=== PATIENT | male | born 1950 | race Caucasian/White ===

== ENCOUNTER 2021-07-15 19:23 | Inpatient (IN) | payer MEDICARE ==
[2021-07-15] MEDS ORDERED: NALOXONE 0.4 MG/ML 1 ML VIAL IV PRN (20:10)
[2021-07-15] MEDS ORDERED: ACETAMINOPHEN TAB 325 MG TAB PO PRN (20:10)
--- NOTE | 2021-07-15 20:34 | ED ---
General Adult HPI - General Chief complaint: Weakness Stated complaint: Weakness Time Seen by Provider: 07/15/21 19:26 Source: patient, EMS, RN notes reviewed, old records reviewed Mode of arrival: EMS - History of Present Illness Initial comments: 70-year-old presenting for evaluation of weakness, lightheadedness. Symptoms have been progressive over some time. He was transferred from [facility] after being found to be in acute renal failure with hyponatremia and hypercalcemia. Patient has not seen a doctor in many years. He states he's feeling better at the time my evaluation. He denies chest pain or dyspnea. Denies abdominal pain. Patient had been given IV hydration prior to transfer. - Related Data Allergies Allergy/AdvReac Type Severity Reaction Status Date / Time bacitracin Allergy Unknown Verified 07/15/21 19:35 [From Neosporin ([id number])] cortisone Allergy Unknown Verified 07/15/21 19:35 neomycin Allergy Unknown Verified 07/15/21 19:35 [From Neosporin ([id number])] polymyxin B Allergy Unknown Verified 07/15/21 19:35 [From Neosporin ([id number])] Review of Systems ROS Statement: Those systems with pertinent positive or pertinent negative responses have been documented in the HPI. ROS Other: All systems not noted in ROS Statement are negative. Past Medical History Past Medical History: No Reported History History of Any Multi-Drug Resistant Organisms: None Reported Past Surgical History: No Surgical Hx Reported Past Psychological History: No Psychological Hx Reported Smoking Status: Current every day smoker Past Alcohol Use History: None Reported Past Drug Use History: None Reported General Exam General appearance: alert, in no apparent distress, cachectic Eye exam: Present: normal appearance, PERRL ENT exam: Present: normal exam Neck exam: Present: normal inspection. Absent: tenderness, meningismus Respiratory exam: Present: wheezes. Absent: respiratory distress Cardiovascular Exam: Present: regular rate, normal rhythm GI/Abdominal exam: Present: soft. Absent: distended, tenderness, guarding Extremities exam: Present: normal inspection, normal capillary refill. Absent: pedal edema Neurological exam: Present: alert, oriented X3. Absent: motor sensory deficit Psychiatric exam: Present: normal affect, normal mood Skin exam: Present: warm, dry, intact Course Vital Signs 10/30/21 10/30/21 19:28 19:30 Temperature 97.3 F L Pulse Rate 61 67 Respiratory 18 18 Rate Blood Pressure 104/60 94/62 O2 Sat by Pulse 93 L 97 Oximetry EKG Findings - EKG Comments: EKG Findings:: EKG: Sinus bradycardia with first-degree AV block, rate of 59, MS interval 138, QRS duration 92, QTC 423 Medical Decision Making - Medical Decision Making 70-year-old male transferred from outside hospital for evaluation of electrolyte abnormalities including hyponatremia, hypercalcemia, and hypokalemia. Patient had been treated with IV fluids. IV fluids, repeat laboratory studies have been ordered and results are pending. Did discuss the case with Dr. Haile, who will admit. Disposition Clinical Impression: Hyponatremia, Hypokalemia, Hypercalcemia Disposition: ADMITTED IP TO THIS HOSP Condition: Stable Is patient prescribed a controlled substance at d/c from ED?: No Referrals: None,Stated [Primary Care Provider] - 1-2 days Decision to Admit Reason: Admit from EC Decision Date: 07/15/21 Decision Time: 20:34
[2021-07-15 20:38] LABS: HCT 36.8 % (39.0-53.0); HGB 12.4 gm/dL (13.0-17.5); MCH 36.9 pg (25.0-35.0); MCHC 33.8 g/dL (31.0-37.0); MCV 109.3 fL (80.0-100.0); Macrocytosis Moderate; Mean Platelet Volume 9.3; Platelet Count 119 k/uL (150-450); RBC 3.37 m/uL (4.30-5.90); RDW 13.1 % (11.5-15.5); WBC 4.8 k/uL (3.8-10.6)
[2021-07-15 20:41] LABS: Ionized Calcium 8.4 mg/dL (4.5-5.3)
[2021-07-15 20:46] LABS: Albumin 3.3 g/dL (3.5-5.0); Magnesium 2.4 mg/dL (1.6-2.3); Phosphorus 3.2 mg/dL (2.5-4.5); Potassium 3.8 mmol/L (3.5-5.1); Total Bilirubin 0.4 mg/dL (0.2-1.3); Total Protein 6.5 g/dL (6.3-8.2)
[2021-07-15 21:33] LABS: Appearance,Urine Clear (Clear); Bilirubin,Urine Negative (Negative); Blood,Urine Negative (Negative); Color,Urine Yellow; Glucose,Urine (UA) Negative (Negative); Ketones,Urine Trace (Negative); Leukocyte Esterase,Urine Negative (Negative); Nitrite,Urine Negative (Negative); Protein,Urine Negative (Negative); Specific Gravity,Urine 1.016 (1.001-1.035); Urobilinogen,Urine <2.0 mg/dL (<2.0)
[2021-07-15 21:39] LABS: Calcium 15.7 mg/dL (8.4-10.2)
[2021-07-15] MEDS: SODIUM CHLORIDE 0.9% 1,000 ML IV SCH (21:40)
[2021-07-15 22:04] LABS: Band Neutrophils % 11 %; Eosinophils # (M) 0.05 k/uL (0-0.7); Lymphocytes # (M) 1.01 k/uL (1.0-4.8); Monocytes # (M) 0.48 k/uL (0-1.0); Neutrophils % (M) 57 %; Nucleated Red Blood Cells 0 /100 WBC (0-0); Total Cells Counted 100
[2021-07-15 22:58] LABS: Prothrombin Time 10.5 sec (9.0-12.0)
[2021-07-15 23:04] LABS: Partial Thromboplastin Time 18.9 sec (22.0-30.0)
--- NOTE | 2021-07-16 01:58 | P.HPIM ---
History of Present Illness H&P Date: 07/15/21 The patient is a 70-year-old male with a PMH of tobacco abuse who was transferred from [facility] where he presented earlier today for lightheadedness, weakness, and multiple falls. The patient reports that over the past few weeks, he has had a poor appetite and thereby has not been eating a s much. He also reports that he has not seen a physician for over 20 years and that he takes multiple jdcb-tlx-[id number] supplements including calcium, magnesium, and several different types of amino acids. He reports that over the past few weeks, he has felt increasingly tired and dizzy which he describes as lightheadedness especially upon standing up. Patient denied chest discomfort, shortness of breath, fever, chills, cough. Also denied nausea, vomiting, abdominal pain, diarrhea. Laboratory evaluation from the emergency room was remarkable for hemoglobin 12.4, MCV 109.3, platelets 119, sodium 126, BUN 57, creatinine 1.88, calcium 15.7, magnesium 2.4, AST 120, ALT 50, troponin I 0.043 (0.054 at [facility]). The patient was transferred from [facility] for a nephrology evaluation for kidney injury and multiple electrolyte derangements. Review of systems: Pertinent positives and negatives as discussed in HPI, a complete review of systems was performed and all other systems are negative. Physical examination: General: non toxic, no distress, appears at stated age, normal weight Derm: no unusual rashes/lesions no unusual ecchymoses, warm, dry Head: atraumatic, normocephalic, symmetric Eyes: EOMI, no lid lag, anicteric sclera, pupils equal round reactive to light ENT: Nose and ears atraumatic, no thrush, no pharyngeal erythema Neck: No thyromegaly, no cervical lymphadenopathy, trachea midline, supple Mouth: no lip lesion, mucus membranes moist Cardiovascular: S1S2 reg, no murmur, positive posterior tibial pulse bilateral, no edema, capillary refill less than 2 seconds Lungs: CTA bilateral, no rhonchi, no rales , no accessory muscle use Abdominal: soft, nontender to palpation, no guarding, no appreciable organomegaly, normal bowel sounds Ext: no gross muscle atrophy, muscle strength 5 out of 5 in all 4 extremities grossly, no contractures, Neuro: CN II-XI grossly intact, light touch intact all 4 extremities, finger to nose within normal limits, Psych: Alert, oriented, slow to answer, Assessment/plan Severe hypercalcemia -Suspected secondary to OTC supplementation -Check PTH levels -Calcitonin SQ 400 units ordered -Consult nephrology -IV fluids Troponin elevation -Downtrending from 0.054-0.043 -Cardiac monitoring -Patient denying chest pain or shortness of breath Acute kidney injury -Likely prerenal with poor oral intake -Continue IV fluids -Nephrology consulted Hyponatremia -IV fluids Macrocytosis -Check folate and B12 levels Abnormal LFTs -Denied alcohol use DVT prophylaxis -Heparin subq The patient is admitted with an anticipated greater than 2 midnight stay for evaluation of hypercalcemia, CHAYA. CODE STATUS: Full Code Discussed with: Patient Anticipated discharge date: 2-[address]: Home Past Medical History Past Medical History: No Reported History History of Any Multi-Drug Resistant Organisms: None Reported Past Surgical History: No Surgical Hx Reported Past Psychological History: No Psychological Hx Reported Smoking Status: Current every day smoker Past Alcohol Use History: None Reported Past Drug Use History: None Reported Medications and Allergies Home Medications Medication Instructions Recorded Confirmed Type No Known Home Medications 07/15/21 07/15/21 History Allergies Allergy/AdvReac Type Severity Reaction Status Date / Time bacitracin Allergy Unknown Verified 07/15/21 21:00 [From Neosporin ([id number])] cortisone Allergy Unknown Verified 07/15/21 21:00 neomycin Allergy Unknown Verified 07/15/21 21:00 [From Neosporin ([id number])] polymyxin B Allergy Unknown Verified 07/15/21 21:00 [From Neosporin ([id number])] Physical Exam Vitals: Vital Signs Temp Pulse Resp BP Pulse Ox 07/15/21 23:20 58 L 18 101/67 95 07/15/21 22:30 54 L 18 92/77 94 L 07/15/21 21:30 56 L 18 99/66 96 07/15/21 20:30 54 L 18 110/60 95 07/15/21 19:30 67 18 94/62 97 07/15/21 19:28 97.3 F L 61 18 104/60 93 L Intake and Output 07/15/21 07/15/21 07/16/21 14:59 22:59 06:59 Other: Weight 61.689 kg Results CBC & Chem 7: 07/16/21 02:56 07/16/21 02:56 Labs: Abnormal Lab Results - Last 24 Hours (Table) 07/15/21 07/15/21 07/15/21 Range/Units 20:07 20:07 20:07 RBC 3.37 L (4.30-5.90) m/uL Hgb 12.4 L (13.0-17.5) gm/dL Hct 36.8 L (39.0-53.0) % MCV 109.3 H (80.0-100.0) fL MCH 36.9 H (25.0-35.0) pg Plt Count 119 L (150-450) k/uL APTT (22.0-30.0) sec Sodium 126 L (137-145) mmol/L Chloride 94 L (98-107) mmol/L BUN 57 H (9-20) mg/dL Creatinine 1.88 H (0.66-1.25) mg/dL Calcium 15.7 H* (8.4-10.2) mg/dL Ionized Calcium Rob 8.4 H* (4.5-5.3) mg/dL Magnesium 2.4 H (1.6-2.3) mg/dL AST 120 H (17-59) U/L ALT 50 H (4-49) U/L Troponin I (0.000-0.034) ng/mL Albumin 3.3 L (3.5-5.0) g/dL Urine Ketones Trace H (Negative) 07/15/21 07/15/21 Range/Units 20:07 22:23 RBC (4.30-5.90) m/uL Hgb (13.0-17.5) gm/dL Hct (39.0-53.0) % MCV (80.0-100.0) fL MCH (25.0-35.0) pg Plt Count (150-450) k/uL APTT 18.9 L (22.0-30.0) sec Sodium (137-145) mmol/L Chloride (98-107) mmol/L BUN (9-20) mg/dL Creatinine (0.66-1.25) mg/dL Calcium (8.4-10.2) mg/dL Ionized Calcium Rob (4.5-5.3) mg/dL Magnesium (1.6-2.3) mg/dL AST (17-59) U/L ALT (4-49) U/L Troponin I 0.043 H* (0.000-0.034) ng/mL Albumin (3.5-5.0) g/dL Urine Ketones (Negative)
[2021-07-16 03:19] LABS: HCT 36.2 % (39.0-53.0); HGB 12.4 gm/dL (13.0-17.5); MCH 37.4 pg (25.0-35.0); MCHC 34.2 g/dL (31.0-37.0); Macrocytosis Marked; Mean Platelet Volume 9.3; Platelet Count 120 k/uL (150-450); RBC 3.31 m/uL (4.30-5.90); RDW 13.9 % (11.5-15.5); WBC 3.8 k/uL (3.8-10.6)
[2021-07-16 03:32] LABS: Albumin 3.1 g/dL (3.5-5.0); Potassium 3.3 mmol/L (3.5-5.1); Total Bilirubin 0.4 mg/dL (0.2-1.3); Total Protein 6.3 g/dL (6.3-8.2)
[2021-07-16 03:43] LABS: MCV 109.5 fL (80.0-100.0)
[2021-07-16 04:05] LABS: Calcium 15.5 mg/dL (8.4-10.2)
[2021-07-16] MEDS ORDERED: CALCITONIN INJ 200 UNIT/ML (MDV) VIAL SQ ONE ×2 (05:36→15:15)
[2021-07-16] MEDS: POTASSIUM CHLORIDE ER 20 MEQ TAB.ER PO SCH ×2 (05:43→08:08)
[2021-07-16] MEDS ORDERED: DEXTROSE 5%-0.9% NACL 1,000 ML IV SCH (05:45)
[2021-07-16] MEDS: HEPARIN SODIUM,PORCINE/PF 5,000 UNIT/0.5 ML SYRINGE SQ SCH ×3 (08:08→22:49)
[2021-07-16] MEDS: SODIUM CHLORIDE 0.9% 1,000 ML IV SCH ×4 (08:08→22:28)
[2021-07-16] MEDS ORDERED: SODIUM CHLORIDE 0.9% 1,000 ML IV SCH (09:15)
--- NOTE | 2021-07-16 10:00 | XR ---
EXAMINATION TYPE: XR chest 2V DATE OF EXAM: 07/16/2021 COMPARISON: CT scan from outside institution 07/15/2021 HISTORY: Dehydration TECHNIQUE: Frontal and lateral views of the chest are obtained. FINDINGS: Lateralization of the left hemidiaphragm is a stable finding. There is underlying emphysem a, prominent lung volume. Heart is small. No evident pneumothorax or pleural effusion. IMPRESSION: No acute cardiopulmonary process.
--- NOTE | 2021-07-16 10:16 | P.NPCON ---
History of Present Illness - Reason for Consult Consult date: 07/16/21 acute renal failure - Chief Complaint Hypercalcemia and acute kidney injury - History of Present Illness This is a 70-year-old male was seen with acute kidney injury possibly chronic kidney disease hypercalcemia. Calcium is 15.7, creatinine 1.8. He came in because of generalized weakness tiredness and multiple falls. He is a poor historian. He never seen any physician for last several years. He's been on multiple pkza-bss-fzvvsuz medication including 1 tablet of vitamin D and 1 tablet of calcium. Denies any history of smoking. No hemoptysis hematemesis melena no abdominal pain no chest pain or shortness of breath. No headache. No history of taking any nonsteroidals Past history not available as he has not seen any medical providers. Denies any history of hematuria stones prostatism. Past Medical History Past Medical History: No Reported History History of Any Multi-Drug Resistant Organisms: None Reported Past Surgical History: No Surgical Hx Reported Past Psychological History: No Psychological Hx Reported Smoking Status: Current every day smoker Past Alcohol Use History: None Reported Past Drug Use History: None Reported Medications and Allergies Home Medications Medication Instructions Recorded Confirmed Type No Known Home Medications 07/15/21 07/15/21 History Allergies Allergy/AdvReac Type Severity Reaction Status Date / Time bacitracin Allergy Unknown Verified 07/15/21 21:00 [From Neosporin ([id number])] cortisone Allergy Unknown Verified 07/15/21 21:00 neomycin Allergy Unknown Verified 07/15/21 21:00 [From Neosporin ([id number])] polymyxin B Allergy Unknown Verified 07/15/21 21:00 [From Neosporin ([id number])] Physical Exam Vitals: Vital Signs Temp Pulse Resp BP Pulse Ox 07/16/21 08:06 18 07/16/21 08:04 67 18 105/65 96 07/16/21 05:49 54 L 18 91/63 96 07/16/21 03:00 57 L 20 101/62 95 07/16/21 02:00 52 L 18 07/16/21 01:00 58 L 18 07/16/21 00:00 54 L 18 07/15/21 23:20 58 L 18 101/67 95 07/15/21 22:30 54 L 18 92/77 94 L 07/15/21 21:30 56 L 18 99/66 96 07/15/21 20:30 54 L 18 110/60 95 07/15/21 19:30 67 18 94/62 97 07/15/21 19:28 97.3 F L 61 18 104/60 93 L Intake and Output 07/15/21 07/16/21 07/16/21 22:59 06:59 14:59 Other: Weight 61.689 kg Examination is awake alert oriented. HEENT exam no JVP neck is supple no facial asymmetry No lymph nodes were noted in the axilla or groin or Lungs are clear to auscultation and good air entry bilaterally Heart sounds are unremarkable for any murmur rub gallop Abdomen soft nontender, no masses felt Extremity exam was no edema. Neurologically awake alert oriented Results - Lab Results Most recent lab results Calcium 15.5 mg/dL (8.4-10.2) H* 07/16/21 02:56 Phosphorus 3.2 mg/dL (2.5-4.5) 07/15/21 20:07 Magnesium 2.4 mg/dL (1.6-2.3) H 07/15/21 20:07 07/16/21 02:56 07/16/21 02:56 Assessment and Plan Assessment: Impression 1. Severe hypercalcemia calcium is 15.7 PTH is low at its 8.6, phosphorus 3.2. Likely malignancy related. Chest x-ray is clear 2. Elevated creatinine unclear whether it is acute or chronic creatinine is 1.8 blood urea nitrogen a 57. Urinalysis shows no proteinuria. Blood pressure normal or lowish, unlikely to be nephrosclerosis. 3. Hyponatremia secondary to acute kidney injury. Sodium is 126. 4. Low platelet count, cause not very clear. Recommendation 1. PTH related peptide 2. Normal saline at 200 mL an hour 3. Sick eyes and O's 4. Zometa 4 mg IV 1 dose 5. Vitamin D 125 hydroxy level. 6. Serum and urine immunoelectrophoresis 7. Ultrasound of the abdomen and pelvis including kidneys size and rule out masses
[2021-07-16] MEDS ORDERED: ZOLEDRONIC ACID 4 MG in SODIUM CHLORIDE 0.9% 100 ML IV ONE (11:00)
--- NOTE | 2021-07-16 15:15 | P.PN ---
Subjective Patient was seen and evaluated by me in the ER this morning. He denies any complaints. No acute events overnight reported by nursing staff. 11 Only Slightly Better despite Aggressive IV Fluid Hydration. Objective - Vital Signs Vital signs: Vital Signs Temp 97.8 F 07/16/21 12:52 Pulse 85 07/16/21 12:52 Resp 18 07/16/21 12:52 BP 112/75 07/16/21 12:52 Pulse Ox 96 07/16/21 12:52 Intake & Output 07/15/21 07/16/21 07/16/21 18:59 06:59 18:59 Weight 61.689 kg - Exam General: The patient is awake and alert, in no distress Eye: there is normal conjunctiva bilaterally. Neck: The neck is supple, there is no JVD. Cardiovascular: Normal S1-S2, no S3-S4, no murmurs. Respiratory: Lungs clear to auscultation bilaterally Gastrointestinal: Abdomen is soft, nontender Musculoskeletal: There is no pedal edema. Neurological:. Speech is normal. Skin: Skin is warm and dry - Labs CBC & Chem 7: 07/16/21 02:56 07/16/21 02:56 Labs: Abnormal Lab Results - Last 24 Hours (Table) 07/15/21 07/15/21 07/15/21 Range/Units 20:07 20:07 20:07 RBC 3.37 L (4.30-5.90) m/uL Hgb 12.4 L (13.0-17.5) gm/dL Hct 36.8 L (39.0-53.0) % MCV 109.3 H (80.0-100.0) fL MCH 36.9 H (25.0-35.0) pg Plt Count 119 L (150-450) k/uL Macrocytosis APTT (22.0-30.0) sec Sodium 126 L (137-145) mmol/L Potassium (3.5-5.1) mmol/L Chloride 94 L (98-107) mmol/L BUN 57 H (9-20) mg/dL Creatinine 1.88 H (0.66-1.25) mg/dL Uric Acid (3.5-8.5) mg/dL Calcium 15.7 H* (8.4-10.2) mg/dL Ionized Calcium Rob 8.4 H* (4.5-5.3) mg/dL Magnesium 2.4 H (1.6-2.3) mg/dL AST 120 H (17-59) U/L ALT 50 H (4-49) U/L Troponin I (0.000-0.034) ng/mL Albumin 3.3 L (3.5-5.0) g/dL Vitamin B12 (200.0-944.0) pg/mL PTH Intact (14.0-72.0) pg/mL Urine Ketones Trace H (Negative) 07/15/21 07/15/21 07/15/21 Range/Units 20:07 20:07 22:23 RBC (4.30-5.90) m/uL Hgb (13.0-17.5) gm/dL Hct (39.0-53.0) % MCV (80.0-100.0) fL MCH (25.0-35.0) pg Plt Count (150-450) k/uL Macrocytosis APTT 18.9 L (22.0-30.0) sec Sodium (137-145) mmol/L Potassium (3.5-5.1) mmol/L Chloride (98-107) mmol/L BUN (9-20) mg/dL Creatinine (0.66-1.25) mg/dL Uric Acid (3.5-8.5) mg/dL Calcium (8.4-10.2) mg/dL Ionized Calcium Rob (4.5-5.3) mg/dL Magnesium (1.6-2.3) mg/dL AST (17-59) U/L ALT (4-49) U/L Troponin I 0.043 H* (0.000-0.034) ng/mL Albumin (3.5-5.0) g/dL Vitamin B12 (200.0-944.0) pg/mL PTH Intact 8.6 L (14.0-72.0) pg/mL Urine Ketones (Negative) 07/16/21 07/16/21 07/16/21 Range/Units 02:56 02:56 02:56 RBC 3.31 L (4.30-5.90) m/uL Hgb 12.4 L (13.0-17.5) gm/dL Hct 36.2 L (39.0-53.0) % MCV 109.5 H (80.0-100.0) fL MCH 37.4 H (25.0-35.0) pg Plt Count 120 L (150-450) k/uL Macrocytosis Marked A APTT (22.0-30.0) sec Sodium 130 L (137-145) mmol/L Potassium 3.3 L (3.5-5.1) mmol/L Chloride 97 L (98-107) mmol/L BUN 54 H (9-20) mg/dL Creatinine 1.87 H (0.66-1.25) mg/dL Uric Acid (3.5-8.5) mg/dL Calcium 15.5 H* (8.4-10.2) mg/dL Ionized Calcium Rob (4.5-5.3) mg/dL Magnesium (1.6-2.3) mg/dL AST 111 H (17-59) U/L ALT 50 H (4-49) U/L Troponin I (0.000-0.034) ng/mL Albumin 3.1 L (3.5-5.0) g/dL Vitamin B12 >2000.0 H (200.0-944.0) pg/mL PTH Intact (14.0-72.0) pg/mL Urine Ketones (Negative) 07/16/21 Range/Units 02:56 RBC (4.30-5.90) m/uL Hgb (13.0-17.5) gm/dL Hct (39.0-53.0) % MCV (80.0-100.0) fL MCH (25.0-35.0) pg Plt Count (150-450) k/uL Macrocytosis APTT (22.0-30.0) sec Sodium (137-145) mmol/L Potassium (3.5-5.1) mmol/L Chloride (98-107) mmol/L BUN (9-20) mg/dL Creatinine (0.66-1.25) mg/dL Uric Acid 10.7 H (3.5-8.5) mg/dL Calcium (8.4-10.2) mg/dL Ionized Calcium Rob (4.5-5.3) mg/dL Magnesium (1.6-2.3) mg/dL AST (17-59) U/L ALT (4-49) U/L Troponin I (0.000-0.034) ng/mL Albumin (3.5-5.0) g/dL Vitamin B12 (200.0-944.0) pg/mL PTH Intact (14.0-72.0) pg/mL Urine Ketones (Negative) Assessment and Plan Assessment: The patient is a 70-year-old male with a PMH of tobacco abuse who was transferred from [facility] where he presented for lightheadedness, weakness, and multiple falls. The patient reports that over the past few weeks, he has had a poor appetite and thereby has not been eating as much. He also reports that he has not seen a physician for over 20 years and that he takes multiple rhmv-zdt-[id number] supplements including calcium, magnesium, and several different types of amino acids. Patient was evaluated in the ER and admitted to the hospital for further management of his medical problems noted below Assessment/plan 1. Hypercalcemia, with low PTH. Patient was started on aggressive IV fluid hydration with normal saline at 200 mL per hour. He was given one-time dose of Zometa as directed by nephrology. PTH level is low. Awaiting 1, 25 hydroxy vitamin D and protein electrophoresis. Need to rule out underlying malignancy. Patient had a computed tomography scan of the chest at the outside facility that was unremarkable. I ordered PSA 2. Acute kidney injury, continue IV fluid hydration. Obtain ultrasound of the kidneys for further evaluation. Unknown baseline kidney function 3. Hypovolemic hyponatremia Today, I reviewed his medication list and lab work results. Mild thrombocytopenia of unclear etiology. We will continue current regimen. Appreciate nephrology recommendations. He'll be lab work in the morning. CODE STATUS: Full Code Discussed with: Patient Anticipated discharge date: Pending clinical course Anticipated discharge place: Home
--- NOTE | 2021-07-16 18:05 | US ---
EXAMINATION TYPE: US kidneys/renal and bladder DATE OF EXAM: 07/16/2021 COMPARISON: Outside CT on PACS CLINICAL HISTORY: Acute kidney injury, rule out mass. EXAM MEASUREMENTS: Right Kidney: 12.2 x 5.0 x 6.1 cm Left Kidney: 12.3 x 6.7 x 5.5 cm Kidneys appear echogenic bilaterally. Right Kidney: tiny cyst measures 0.7 x 0.8 x 0.8 cm. Left Kidney: No hydronephrosis or masses seen Bladder: wnl Bilateral Jets seen: Yes Incidental note is made of prominent prostate. Incidental note is made of multiple gallstones. IMPRESSION: No evidence of solid renal mass or obstruction. There are bilateral ureteral jets in the urinary blad atilio. No evidence of bladder mass. Enlarged prostate measures 5.6 cm. Kidneys are echogenic and could relate to medical renal disease.
[2021-07-16 19:28] LABS: Calcium 12.6 mg/dL (8.4-10.2); Potassium 3.6 mmol/L (3.5-5.1)
[2021-07-17] MEDS: ONDANSETRON 4 MG/2 ML VIAL IVP PRN (00:16)
[2021-07-17] MEDS ORDERED: VANCOMYCIN 125 MG CAPSULE PO SCH ×3 (02:45→03:00)
--- NOTE | 2021-07-17 02:48 | P.PN ---
Progress Note - Text Progress Note Date: 07/17/21 patient tested positive for c diff concerns for severe (elevated creatinine unknown baseline ) and fulminant (hypotensive) colitis check abd xray to assess for isidro colon
[2021-07-17] MEDS: SODIUM CHLORIDE 0.9% 1,000 ML IV SCH ×4 (03:17→17:38)
[2021-07-17 03:20] LABS: Magnesium 1.5 mg/dL (1.6-2.3); Potassium 3.4 mmol/L (3.5-5.1)
[2021-07-17] MEDS ORDERED: POTASSIUM CHLORIDE ER 20 MEQ TAB.ER PO ONE (04:00)
[2021-07-17] MEDS: MAGNESIUM SULFATE-D5W PMX 1 GM in DEXTROSE/WATER 1 100ML.BAG IVPB SCH ×2 (04:10→05:12)
[2021-07-17] MEDS ORDERED: MAGNESIUM SULFATE-D5W PMX 1 GM in DEXTROSE/WATER 1 100ML.BAG IVPB SCH (08:15)
--- NOTE | 2021-07-17 08:23 | XR ---
EXAMINATION TYPE: XR abdomen 1V DATE OF EXAM: 07/17/2021 COMPARISON: NONE HISTORY: Pain TECHNIQUE: One view abdominal series FINDINGS: The osseous structures are intact. The bowel gas pattern is nonspecific. Left basilar subsegmental c onsolidation with pleural thickening or small left effusion. Air-fluid levels are seen in the right a bdomen. Arthropathy of the hips and degenerative change spine. IMPRESSION: 1. Nonspecific abdomen with multiple air-fluid levels correlate for ileus or obstruction.
[2021-07-17] MEDS: HEPARIN SODIUM,PORCINE/PF 5,000 UNIT/0.5 ML SYRINGE SQ SCH ×3 (09:00→23:04)
[2021-07-17] MEDS: VANCOMYCIN 125 MG CAPSULE PO SCH ×4 (09:01→20:02)
[2021-07-17 09:10] LABS: Protein, Total 5.6 g/dL (6.2-8.2)
[2021-07-17 09:27] LABS: Magnesium 1.8 mg/dL (1.6-2.3)
--- NOTE | 2021-07-17 12:39 | P.CRDCN ---
History of Present Illness Consult date: 07/17/21 History of present illness: HISTORY OF PRESENT ILLNESS: This is a 70-year-old male with a past medical history significant for nicotine dependence. Patient does not follow with a labor and delivery registered nurse. We have been asked to see the patient in consultation for bradycardia. Patient is admitted to the hospital secondary to acute kidney injury and hypercalcemia. Patient was also found to be positive for C. diff. Patient examined at the bedside. Patient had an episode overnight while sleeping on telemetry that appeared to be second degree heart block. Patient was asymptomatic. He is maintaining sinus mechanism this morning with a heart rate in the 70s. He is not prescribed any AV laanna blocking agents. He denies chest pain or pressure. Denies shortness of breath. He currently denies dizziness or lightheadedness. However, he does report dizziness upon standing over the last 3 weeks at home. Orthostatic blood pressures obtained yesterday were positive. Blood pressure supine 97/61. Blood pressure sitting 79/52. Blood pressure standing 63/45. Repeat orthostatics performed today revealed blood pressure supine 83/48. Blood pressure sitting 82/51. Blood pressure standing 70/52. EKG reveals sinus mechanism with 1st degree AV block. Telemetry reveals episodes of second degree heart block overnight. Chest xray negative for acute process Laboratory data: WBC 3.8. Hemoglobin 12.4. Platelet count 120. Sodium 130. Potassium 3.4. BUN 40. Creatinine 1.42. Calcium 15.7. Repeat 12.0. Magnesium 1.8. Troponin 0.043. 0.0-3. 0.018. Current home cardiac medications include none REVIEW OF SYSTEMS: At the time of my exam: CONSTITUTIONAL: Denies fever or chills. HEENT: Denies blurred vision, vision changes, or eye pain. Denies hemoptysis CARDIOVASCULAR: Denies chest pain. Denies orthopnea. Denies PND. Denies palpitations RESPIRATORY: Denies shortness of breath. GASTROINTESTINAL: Denies abdominal pain. Denies nausea or vomiting. + diarrhea HEMATOLOGIC: Denies bleeding disorders. GENITOURINARY: Denies any blood in urine. SKIN: Denies pruitis. Denies rash. PHYSICAL EXAM: VITAL SIGNS: Reviewed. GENERAL: Well-developed in no acute distress. HEENT: Head is normocephalic. Pupils are equal, round. Sclerae anicteric. Mucous membranes of the mouth are moist. Neck supple. No JVD or thyromegaly LUNGS: Respirations even and unlabored. Lungs essentially clear to auscultation bilaterally. HEART: Regular rate and rhythm. S1 and S2 heard. ABDOMEN: Soft. Nondistended. Nontender. EXTREMITIES: Normal range of motion. No clubbing or cyanosis. Peripheral pulses intact. No lower extremity edema NEUROLOGIC: Awake and alert. Oriented x 3. ASSESSMENT: Acute kidney injury Hypercalcemia Hypokalemia Hypomagnesemia Orthostatic hypotension Second-degree heart block, isolated episode overnight, resolved C. Diff Nicotine dependence PLAN: Obtain 2D echo to assess cardiac structure and function Check TSH Will consider 30 day event monitor No need for PPM at this time Continue telemetry monitoring Continue to monitor electrolytes and supplement as needed Orthostatics are improved today in comparison to yesterday. Will recheck again tomorrow. Will consider the use of Midodrine if orthostatics worsen. Further recommendations pending patient course Nurse practitioner note has been reviewed by physician. Signing provider agrees with the documented findings, assessment, and plan of care. Past Medical History Past Medical History: Diabetes Mellitus Additional Past Medical History / Comment(s): Diet controlled DM History of Any Multi-Drug Resistant Organisms: None Reported Past Surgical History: No Surgical Hx Reported Past Psychological History: No Psychological Hx Reported Smoking Status: Current every day smoker Past Alcohol Use History: None Reported Past Drug Use History: None Reported - Past Family History Father Family Medical History: AICD/Pacemaker, Congestive Heart Failure (CHF), COPD, Coronary Artery Disease (CAD), Hyperlipidemia, Hypertension, Myocardial Infarction (AR) Additional Family Medical History / Comment(s): emphysema, Mother Family Medical History: AICD/Pacemaker, Congestive Heart Failure (CHF), Coronary Artery Disease (CAD), Myocardial Infarction (AR) Medications and Allergies Home Medications Medication Instructions Recorded Confirmed Type No Known Home Medications 07/15/21 07/15/21 History Allergies Allergy/AdvReac Type Severity Reaction Status Date / Time bacitracin Allergy Unknown Verified 07/15/21 21:00 [From Neosporin ([id number])] cortisone Allergy Unknown Verified 07/15/21 21:00 neomycin Allergy Unknown Verified 07/15/21 21:00 [From Neosporin ([id number])] polymyxin B Allergy Unknown Verified 07/15/21 21:00 [From Neosporin ([id number])] Physical Exam Vitals: Vital Signs Temp Pulse Pulse Pulse Pulse Pulse Resp 07/17/21 10:44 79 84 75 07/17/21 09:00 98.1 F 75 16 07/17/21 03:26 98.1 F 72 16 07/16/21 20:00 97.9 F 68 16 07/16/21 18:32 18 07/16/21 14:00 98.1 F 63 73 91 65 16 07/16/21 12:52 97.8 F 85 18 07/16/21 12:15 97.3 F L 63 18 07/16/21 12:00 97.3 F L 63 18 BP BP BP BP BP Pulse Ox 07/17/21 10:44 82/51 78/54 83/48 07/17/21 09:00 91/53 95 07/17/21 03:26 91/51 95 07/16/21 20:00 93/51 07/16/21 18:32 07/16/21 14:00 79/52 63/45 97/61 91/58 95 07/16/21 12:52 112/75 96 07/16/21 12:15 96/64 96 07/16/21 12:00 96/64 96 Intake and Output 07/16/21 07/17/21 07/17/21 22:59 06:59 14:59 Intake Total 440 1880 2518 Output Total 125 3230 Balance 315 -1350 2518 Intake: Intake, IV Titration 633 543 6315 Amount Sodium Chloride 0.9% 1, 495 351 5852 000 ml @ 200 mls/hr IV . Q5H [facility] Rx#:[id number] Oral 240 1080 118 Output: Urine 125 420 Stool 2810 Other: Voiding Method Toilet Toilet Urinal Urinal # Voids 1 3 # Bowel Movements 1 3 Results 07/16/21 02:56 07/17/21 02:41 Cardiac Enzymes 07/17/21 07/17/21 Range/Units 08:09 10:36 Troponin I 0.023 0.018 (0.000-0.034) ng/mL Comprehensive Metabolic Panel 07/16/21 07/17/21 Range/Units 18:41 02:41 Sodium 131 L 130 L (137-145) mmol/L Potassium 3.6 3.4 L (3.5-5.1) mmol/L Chloride 98 100 (98-107) mmol/L Carbon Dioxide 27 28 (22-30) mmol/L BUN 46 H 40 H (9-20) mg/dL Creatinine 1.60 H 1.42 H (0.66-1.25) mg/dL Glucose 118 H 107 H (74-99) mg/dL Calcium 12.6 H 12.0 H (8.4-10.2) mg/dL Current Medications Generic Name Dose Route Start Last Admin Trade Name Freq PRN Reason Stop Dose Admin Acetaminophen 650 mg 07/15/21 20:10 Acetaminophen Tab 325 Mg Tab PO Q6HR PRN Mild Pain or Fever > 100.5 Heparin Sodium (Porcine) 5,000 unit 07/16/21 08:00 07/17/21 09:00 Heparin Sodium,Porcine/Pf 5,000 Unit/0.5 Ml Syringe SQ 5,000 unit Q8HR [facility] Administration Sodium Chloride 1,000 mls @ 200 mls/hr 07/16/21 10:30 07/17/21 09:00 Saline 0.9% IV 200 mls/hr .Q5H [facility] Administration Naloxone HCl 0.2 mg 07/15/21 20:10 Naloxone 0.4 Mg/Ml 1 Ml Vial IV Q2M PRN Opioid Reversal Ondansetron HCl 4 mg 07/17/21 00:03 07/17/21 00:16 Ondansetron 4 Mg/2 Ml Vial IVP 4 mg Q8HR PRN Administration Nausea And Vomiting Vancomycin HCl 125 mg 07/17/21 09:00 07/17/21 09:01 Vancomycin 125 Mg Capsule PO 125 mg QID [facility] Administration Intake and Output 07/16/21 07/17/21 07/17/21 22:59 06:59 14:59 Intake Total 440 1880 2518 Output Total 125 3230 Balance 315 -1350 2518 Intake: Intake, IV Titration 068 142 7822 Amount Sodium Chloride 0.9% 1, 938 889 0912 000 ml @ 200 mls/hr IV . Q5H [facility] Rx#:[id number] Oral 240 1080 118 Output: Urine 125 420 Stool 2810 Other: Voiding Method Toilet Toilet Urinal Urinal # Voids 1 3 # Bowel Movements 1 3 07/16/21 02:56 07/17/21 02:41
[2021-07-17 13:25] VITALS: BMI 21.2
--- NOTE | 2021-07-17 14:00 | PN ---
PROGRESS NOTE Patient is seen for followup for acute kidney injury and hypercalcemia. His renal function has improved along with some improvement in his calcium levels as well. Currently patient is maintained on normal saline at 200 mL an hour. His PTH was appropriately low at 8. Vitamin D levels are pending along with immunofixation. Serum creatinine is down to 1.42 today. PHYSICAL EXAMINATION: Patient is comfortable, awake, he is not in any acute distress. Blood pressure remains on the lower side with systolic 82-83 mmHg. Heart rate 75 per minute. Patient is afebrile. Examination of lower extremities shows no evidence of edema. Abdomen is soft, nontender. LAB: Show sodium 130, potassium 3.4, chloride 100, BUN 40, creatinine 1.42, magnesium 1.8. 1. Acute kidney injury secondary to hypercalcemia and volume depletion, currently improving. 2. Hypercalcemia with appropriately low PTH levels. Awaiting vitamin D and urine and serum immunofixation. Currently maintained on saline and status post one dose of Zometa. 3. Clostridium difficile colitis with significant diarrhea, maintained on oral vancomycin. PLAN: Continue with the saline for now. Follow up on vitamin D levels and serum and urine immunofixation. MMODL / IJN: [id number] /
--- NOTE | 2021-07-17 16:19 | P.PN ---
Subjective Patient has been having multiple episodes of diarrhea since admission. C. diff checked and positive. He is currently on isolation. No other complaint this morning. Objective - Vital Signs Vital signs: Vital Signs Temp 98.1 F 07/17/21 09:00 Pulse 75 07/17/21 10:44 Resp 16 07/17/21 09:00 BP 83/48 07/17/21 10:44 Pulse Ox 95 07/17/21 09:00 Intake & Output 07/16/21 07/17/21 07/17/21 18:59 06:59 18:59 Intake Total 240 2080 2636 Output Total 225 3230 Balance 15 -1150 2636 Weight 61.689 kg Intake: Intake, IV Titration 1000 2400 Amount Sodium Chloride 0.9% 1, 1000 2400 000 ml @ 200 mls/hr IV . Q5H [facility] Rx#:[id number] Oral 240 1080 236 Output: Urine 225 420 Stool 2810 Other: Voiding Method Toilet Toilet Toilet Urinal Urinal Urinal # Voids 1 3 # Bowel Movements 1 3 - Exam General: The patient is awake and alert, in no distress Eye: there is normal conjunctiva bilaterally. Neck: The neck is supple, there is no JVD. Cardiovascular: Normal S1-S2, no S3-S4, no murmurs. Respiratory: Lungs clear to auscultation bilaterally Gastrointestinal: Abdomen is soft, nontender Musculoskeletal: There is no pedal edema. Neurological:. Speech is normal. Skin: Skin is warm and dry - Labs CBC & Chem 7: 07/16/21 02:56 07/17/21 02:41 Labs: Abnormal Lab Results - Last 24 Hours (Table) 07/16/21 07/16/21 07/17/21 Range/Units 02:56 18:41 00:18 Sodium 131 L (137-145) mmol/L Potassium (3.5-5.1) mmol/L BUN 46 H (9-20) mg/dL Creatinine 1.60 H (0.66-1.25) mg/dL Glucose 118 H (74-99) mg/dL Calcium 12.6 H (8.4-10.2) mg/dL Magnesium (1.6-2.3) mg/dL Total Protein (PEP) (6.2-8.2) g/dL RBC Folate 1,085 H (280 - 791) ng/mL C. difficile (EIA) Intrp Positive A (Negative) 07/17/21 07/17/21 Range/Units 02:41 02:41 Sodium 130 L (137-145) mmol/L Potassium 3.4 L (3.5-5.1) mmol/L BUN 40 H (9-20) mg/dL Creatinine 1.42 H (0.66-1.25) mg/dL Glucose 107 H (74-99) mg/dL Calcium 12.0 H (8.4-10.2) mg/dL Magnesium 1.5 L (1.6-2.3) mg/dL Total Protein (PEP) 5.6 L (6.2-8.2) g/dL RBC Folate (280 - 791) ng/mL C. difficile (EIA) Intrp (Negative) Assessment and Plan Assessment: The patient is a 70-year-old male with a PMH of tobacco abuse who was t ransferred from [facility] where he presented for lightheadedness, weakness, and multiple falls. The patient reports that over the past few weeks, he has had a poor appetite and thereby has not been eating as much. He also reports that he has not seen a physician for over 20 years and that he takes multiple [id number] supplements including calcium, magnesium, and several different types of amino acids. Patient was evaluated in the ER and admitted to the hospital for further management of his medical problems noted below Assessment/plan 1. Hypercalcemia, with low PTH. Patient was started on aggressive IV fluid hydration with normal saline at 200 mL per hour. He was given one-time dose of Zometa as directed by nephrology. PTH level is low. Awaiting 1, 25 hydroxy vitamin D and protein electrophoresis. Need to rule out underlying malignancy. Patient had a computed tomography scan of the chest at the outside facility that was unremarkable. I ordered PSA 2. Acute kidney injury, creatinine improving with IV fluid hydration. Kidney ultrasound showed no evidence of hydronephrosis 3. Hypovolemic hyponatremia 4. Enlarged prostate noted on ultrasound measured 5.6 cm area awaiting PSA to rule out malignancy 5. C. diff colitis, started on oral vancomycin to finish 10 days course. Continue supportive care Today, I reviewed his medication list and lab work results. Mild thrombocytopenia of unclear etiology. We will continue current regimen. Appreciate nephrology recommendations. lab work in the morning. CODE STATUS: Full Code Discussed with: Patient Anticipated discharge date: Pending clinical course Anticipated discharge place: Pending PT/OT
[2021-07-18] MEDS: SODIUM CHLORIDE 0.9% 1,000 ML IV SCH (04:18)
[2021-07-18 06:39] LABS: Calcium 9.9 mg/dL (8.4-10.2); Potassium 3.1 mmol/L (3.5-5.1)
[2021-07-18] MEDS ORDERED: Potassium Replacement Protocol 1 EACH MISC MISCELLANE PRN (06:59)
[2021-07-18] MEDS ORDERED: Magnesium Replacement Protocol 1 EACH MISC MISCELLANE PRN (07:00)
[2021-07-18] MEDS: MAGNESIUM SULFATE-D5W PMX 1 GM in DEXTROSE/WATER 1 100ML.BAG IVPB SCH ×3 (08:58→11:46)
[2021-07-18] MEDS: MAGNESIUM OXIDE 400 MG TAB PO SCH ×2 (08:59→21:11)
[2021-07-18] MEDS: CHOLESTYRAMINE (WITH SUGAR) 4 GM PACKET PO SCH ×3 (08:59→19:01)
[2021-07-18] MEDS: HEPARIN SODIUM,PORCINE/PF 5,000 UNIT/0.5 ML SYRINGE SQ SCH ×3 (08:59→23:48)
[2021-07-18] MEDS: POTASSIUM CHLORIDE ER 20 MEQ TAB.ER PO SCH ×2 (08:59→10:13)
[2021-07-18] MEDS: VANCOMYCIN 125 MG CAPSULE PO SCH ×4 (08:59→21:12)
[2021-07-18] MEDS: 0.9% NACL WITH KCL 20 MEQ/L 1,000 ML IV SCH (09:06)
--- NOTE | 2021-07-18 10:32 | ECHOF ---
Referral Reason:LV function MEASUREMENTS -------- HEIGHT: 170.2 cm WEIGHT: 61.7 kg BP: 91/51 RVIDd: 3.1 cm (< 3.3) IVSd: 1.0 cm (0.6 - 1.1) LVIDd: 4.5 cm (3.9 - 5.3) LVPWd: 1.0 cm (0.6 - 1.1) IVSs: 1.5 cm LVIDs: 2.8 cm LVPWs: 1.5 cm LA Diam: 2.4 cm (2.7 - 3.8) Ao Diam: 4.0 cm (2.0 - 3.7) AV Cusp: 2.3 cm (1.5 - 2.6) MV EXCURSION: 15.792 mm (> 18.000) MV EF SLOPE: 78 mm/s (70 - 150) EPSS: 0.8 cm MV E Home: 0.79 m/s MV DecT: 280 ms MV A Home: 1.21 m/s MV E/A Ratio: 0.66 RAP: 5.00 mmHg RVSP: 24.18 mmHg FINDINGS -------- Sinus rhythm. This was a technically good study. The left ventricular size is normal. Left ventricular wall thickness is normal. Overall left vent ricular systolic function is normal with, an EF between 60 - 65 %. The right ventricle is normal in size. The left atrium is normal in size. The right atrium is normal in size. Interatrial and interventricular septum intact. The aortic valve is trileaflet, and appears structurally normal. No aortic stenosis or regurgitation. The mitral valve is normal. Mild tricuspid regurgitation present. Right ventricular systolic pressure is normal at < 35 mmHg. Trace/mild (physiologic) pulmonic regurgitation. 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 Normal inferior vena cava with normal inspiratory collapse consistent with estimated right atrial pre ssure of 5 mmHg. There is no pericardial effusion. CONCLUSIONS -------- 1. The left ventricular size is normal. 2. Left ventricular wall thickness is normal. 3. Overall left ventricular systolic function is normal with, an EF between 60 - 65 %. 4. The aortic valve is trileaflet, and appears structurally normal. No aortic stenosis or regurgitati on. 5. Mild tricuspid regurgitation present. 6. Trace/mild (physiologic) pulmonic regurgitation. 7. 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 8. There is no pericardial effusion. TOOL POLISHER: Jenni Mitchell RDCS
--- NOTE | 2021-07-18 13:25 | PN ---
PROGRESS NOTE Patient is seen for followup for acute kidney injury, mostly prerenal. His renal function has improved with creatinine down to 1.3 from 1.8 mg/dL. Patient is being treated for C difficile colitis. He is maintained on p.o. vancomycin. He has had diarrhea and is currently going to the restroom again. Patient is maintained on IV fluids at 75 mL an hour. EXAMINATION: Today, vital signs are reviewed. Blood pressure 99/54, heart rate 87 per minute. He is afebrile. Examination shows no evidence of edema. GARMENT MANUFACTURING SUPERVISOR exam grossly intact. The patient is rushing to the bathroom. LAB: Show sodium 128, potassium 3.1, BUN 20, creatinine 1.32, magnesium 1.0. ASSESSMENT: 1. Acute kidney injury, prerenal currently improving with IV hydration. Blood pressure has been on the lower side as well. Currently stable. 2. Hypokalemia secondary to GI fluid loss. Will replace. Maintained on supplementation. 3. Hypomagnesemia secondary to diarrhea. We will replace. 4. Clostridium difficile colitis, maintained on oral vancomycin. 5. Hyponatremia mostly hypovolemic, although serum sodium dropped from yesterday. I will continue with normal saline and add sodium chloride tabs. PLAN: Replace potassium. Replace magnesium. MMODL / IJN: [id number] /
--- NOTE | 2021-07-18 13:58 | P.PN ---
Subjective Progress Note Date: 07/18/21 HISTORY OF PRESENT ILLNESS: This is a 70-year-old male with a past medical history significant for nicotine dependence. Patient does not follow with a enterprise solutions architect. We have been asked to see the patient in consultation for bradycardia. Patient is admitted to the hospital secondary to acute kidney injury and hypercalcemia. Patient was also found to be positive for C. diff. Patient examined at the bedside. Patient had an episode overnight while sleeping on telemetry that appeared to be second degree heart block. Patient was asymptomatic. He is maintaining sinus mechanism this morning with a heart rate in the 70s. He is not prescribed any AV alanna blocking agents. He denies chest pain or pressure. Denies shortness of breath. He currently denies dizziness or lightheadedness. However, he does report dizziness upon standing over the last 3 weeks at home. Orthostatic blood pressures obtained yesterday were positive. Blood pressure supine 97/61. Blood pressure sitting 79/52. Blood pressure standing 63/45. Repeat orthostatics performed today revealed blood pressure supine 83/48. Blood pressure sitting 82/51. Blood pressure standing 70/52. EKG reveals sinus mechanism with 1st degree AV block. Telemetry reveals episodes of second degree heart block overnight. Chest xray negative for acute process Laboratory data: WBC 3.8. Hemoglobin 12.4. Platelet count 120. Sodium 130. Potassium 3.4. BUN 40. Creatinine 1.42. Calcium 15.7. Repeat 12.0. Magnesium 1.8. Troponin 0.043. 0.0-3. 0.018. Current home cardiac medications include none 07/18/2021 Patient examined this morning at the bedside. Patient continues to have occasional loose stools. He is positive for C. diff. Potassium today 3.1. Magnesium 1.0. Telemetry reveals sinus rhythm with no further episodes of secondary heart block. Echocardiogram completed revealed ejection fraction 60- 65% with mild tricuspid regurgitation. PHYSICAL EXAM: VITAL SIGNS: Reviewed. GENERAL: Well-developed in no acute distress. HEENT: Head is normocephalic. Pupils are equal, round. Sclerae anicteric. Mucous membranes of the mouth are moist. Neck supple. No JVD or thyromegaly LUNGS: Respirations even and unlabored. Lungs essentially clear to auscultation bilaterally. HEART: Regular rate and rhythm. S1 and S2 heard. ABDOMEN: Soft. Nondistended. Nontender. EXTREMITIES: Normal range of motion. No clubbing or cyanosis. Peripheral pulses intact. No lower extremity edema NEUROLOGIC: Awake and alert. Oriented x 3. ASSESSMENT: Acute kidney injury Hypercalcemia Hypokalemia Hypomagnesemia Orthostatic hypotension Second-degree heart block, isolated episode overnight, resolved C. Diff Nicotine dependence PLAN: Continue current cardiac medications Patient is stable from a cardiac standpoint We will sign off. Please reconsult if needed. Nurse practitioner note has been reviewed by physician. Signing provider agrees with the documented findings, assessment, and plan of care. Objective - Vital Signs Vital signs: Vital Signs Temp 99.0 F 07/18/21 11:46 Pulse 79 07/18/21 11:46 Resp 18 07/18/21 11:46 BP 95/56 07/18/21 11:46 Pulse Ox 94 L 07/18/21 11:46 Intake & Output 07/17/21 07/18/21 07/18/21 18:59 06:59 18:59 Intake Total 3166 240 600 Output Total 400 1255 Balance 2766 -1015 600 Weight 61.689 kg 63.5 kg Intake: Intake, IV Titration 2550 Amount Sodium Chloride 0.9% 1, 2400 000 ml @ 200 mls/hr IV . Q5H [facility] Rx#:[id number] Sodium Chloride 0.9% 1, 150 000 ml @ 75 mls/hr IV . [id number] [facility] Rx#:[id number] Oral 616 240 600 Output: Urine 400 1255 Other: Voiding Method Toilet Toilet Toilet Urinal Bedside Commode Urinal # Voids 2 3 1 # Bowel Movements 2 2 - Labs CBC & Chem 7: 07/16/21 02:56 07/18/21 05:57 Labs: Abnormal Lab Results - Last 24 Hours (Table) 07/18/21 Range/Units 05:57 Sodium 128 L (137-145) mmol/L Potassium 3.1 L (3.5-5.1) mmol/L Creatinine 1.32 H (0.66-1.25) mg/dL Magnesium 1.0 L (1.6-2.3) mg/dL
[2021-07-18] MEDS: SODIUM CHLORIDE TAB 1 GM TAB PO SCH ×2 (14:17→21:12)
--- NOTE | 2021-07-18 14:33 | P.PN ---
Subjective Patient is still having frequent stools with approximately 4 bowel movements since last night. Patient appeared a little bit more confused today. Objective - Vital Signs Vital signs: Vital Signs Temp 99.0 F 07/18/21 11:46 Pulse 79 07/18/21 11:46 Resp 18 07/18/21 11:46 BP 95/56 07/18/21 11:46 Pulse Ox 94 L 07/18/21 11:46 Intake & Output 07/17/21 07/18/21 07/18/21 18:59 06:59 18:59 Intake Total 3166 240 600 Output Total 400 1255 Balance 2766 -1015 600 Weight 61.689 kg 63.5 kg Intake: Intake, IV Titration 2550 Amount Sodium Chloride 0.9% 1, 2400 000 ml @ 200 mls/hr IV . Q5H [facility] Rx#:[id number] Sodium Chloride 0.9% 1, 150 000 ml @ 75 mls/hr IV . [id number] [facility] Rx#:[id number] Oral 616 240 600 Output: Urine 400 1255 Other: Voiding Method Toilet Toilet Toilet Urinal Bedside Commode Urinal # Voids 2 3 1 # Bowel Movements 2 2 - Exam General: The patient is awake and alert, in no distress Eye: there is normal conjunctiva bilaterally. Neck: The neck is supple, there is no JVD. Cardiovascular: Normal S1-S2, no S3-S4, no murmurs. Respiratory: Lungs clear to auscultation bilaterally Gastrointestinal: Abdomen is soft, nontender Musculoskeletal: There is no pedal edema. Neurological:. Speech is normal. Skin: Skin is warm and dry - Labs CBC & Chem 7: 07/16/21 02:56 07/18/21 05:57 Labs: Abnormal Lab Results - Last 24 Hours (Table) 07/18/21 Range/Units 05:57 Sodium 128 L (137-145) mmol/L Potassium 3.1 L (3.5-5.1) mmol/L Creatinine 1.32 H (0.66-1.25) mg/dL Magnesium 1.0 L (1.6-2.3) mg/dL Assessment and Plan Assessment: The patient is a 70-year-old male with a PMH of tobacco abuse who was transferred from [facility] where he presented for lightheadedness, weakness, and multiple falls. The patient reports that over the past few weeks, he has had a poor appetite and thereby has not been eating as much. He also reports that he has not seen a physician for over 20 years and that he takes multiple [id number] supplements including calcium, magnesium, and several different types of amino acids. Patient was evaluated in the ER and admitted to the hospital for further management of his medical problems noted below Assessment/plan 1. Hypercalcemia, with low PTH. Patient was started on aggressive IV fluid hydration with normal saline at 200 mL per hour. He was given one-time dose of Zometa as directed by nephrology. PTH level is low. Awaiting 1, 25 hydroxy vitamin D and protein electrophoresis. Need to rule out underlying malignancy. Patient had a computed tomography scan of the chest at the outside facility that was unremarkable. I ordered PSA 2. Acute kidney injury, creatinine improving with IV fluid hydration. Kidney ultrasound showed no evidence of hydronephrosis 3. Hypovolemic hyponatremia 4. Enlarged prostate noted on ultrasound measured 5.6 cm area awaiting PSA to rule out malignancy 5. C. diff colitis, started on oral vancomycin to finish 10 days course. Cont inue supportive care 6. Hypokalemia and hypomagnesemia, replacement ordered Today, I reviewed his medication list and lab work results. Mild thrombocytopenia of unclear etiology. We will continue current regimen. Appreciate nephrology recommendations. lab work in the morning. CODE STATUS: Full Code Discussed with: Patient Anticipated discharge date: Pending clinical course Anticipated discharge place: Pending PT/OT
[2021-07-18 19:51] LABS: Vitamin D, 1, 25-Dihydroxy >156 pg/mL (20 - 79)
[2021-07-19] MEDS: 0.9% NACL WITH KCL 20 MEQ/L 1,000 ML IV SCH ×2 (02:30→16:00)
[2021-07-19 06:55] LABS: Basophils % (A) 0 %; Eosinophils # (A) 0.1 k/uL (0-0.7); Eosinophils % (A) 2 %; HCT 30.5 % (39.0-53.0); Lymphocytes # (A) 0.6 k/uL (1.0-4.8); Lymphocytes % (A) 8 %; MCH 36.2 pg (25.0-35.0); MCHC 32.5 g/dL (31.0-37.0); Macrocytosis Marked; Mean Platelet Volume 10.6; Monocytes # (A) 0.2 k/uL (0-1.0); Monocytes % (A) 2 %; Neutrophils # (A) 6.8 k/uL (1.3-7.7); Neutrophils % (A) 87 %; Platelet Count 122 k/uL (150-450); RBC 2.73 m/uL (4.30-5.90); RDW 13.6 % (11.5-15.5); WBC 7.8 k/uL (3.8-10.6)
[2021-07-19 06:56] LABS: HGB 9.9 gm/dL (13.0-17.5); MCV 111.5 fL (80.0-100.0)
[2021-07-19 07:06] LABS: Calcium 10.1 mg/dL (8.4-10.2); Magnesium 1.2 mg/dL (1.6-2.3)
[2021-07-19] MEDS ORDERED: Potassium Replacement Protocol 1 EACH MISC MISCELLANE PRN (07:47)
[2021-07-19] MEDS ORDERED: POTASSIUM CHLORIDE ER 20 MEQ TAB.ER PO SCH (08:00)
[2021-07-19] MEDS: CHOLESTYRAMINE (WITH SUGAR) 4 GM PACKET PO SCH ×3 (09:24→17:13)
[2021-07-19] MEDS: MAGNESIUM SULFATE-D5W PMX 1 GM in DEXTROSE/WATER 1 100ML.BAG IVPB SCH ×4 (09:24→15:55)
[2021-07-19] MEDS: HEPARIN SODIUM,PORCINE/PF 5,000 UNIT/0.5 ML SYRINGE SQ SCH ×3 (09:24→23:08)
[2021-07-19] MEDS: POTASSIUM CHLORIDE 10 MEQ in WATER FOR INJECTION 1 100ML.BAG IVPB SCH ×4 (09:39→14:54)
[2021-07-19] MEDS: SODIUM CHLORIDE TAB 1 GM TAB PO SCH ×2 (09:40→20:23)
[2021-07-19] MEDS: VANCOMYCIN 125 MG CAPSULE PO SCH ×4 (09:40→20:23)
--- NOTE | 2021-07-19 11:28 | PN ---
PROGRESS NOTE Patient is seen for followup for acute kidney injury, mostly prerenal. Patient has been maintained on IV fluids. He has had diarrhea from C difficile colitis. Renal function has improved with creatinine staying at about 1.3 for the last couple of days. It had peaked at about 1.8 mg/dL. No previous labs available for comparison. Patient's potassium has been low and it is currently being replaced. On examination today, patient is comfortable. Blood pressure is 105/62, heart rate 80 per minute. He is afebrile. EXAMINATION OF THE HEART: S1 and S2. EXAMINATION OF LUNGS: Bilateral breath sounds are heard. Decreased breath sounds at the bases. Abdomen is soft, non-tender. Examination of lower extremities shows no significant edema. A&P TECHNICIAN EXAM: Grossly intact. Labs show sodium 133, potassium 3.0, BUN 20, creatinine 1.38, hemoglobin 9.9 g/dL. ASSESSMENT: 1. Acute kidney injury, prerenal and secondary to hypercalcemia, currently improved. 2. Hypokalemia associated with gastrointestinal fluid loss, now improved. 3. Hypercalcemia associated with elevated vitamin D levels, currently improved. PTH was appropriately low. 4. Clostridium difficile colitis, maintained on oral vancomycin. 5. Hyponatremia which is hypovolemic, currently maintained on sodium chloride tabs. PLAN: Continue with the sodium chloride tabs. Replace potassium and magnesium. Continue off of vitamin D for now. Repeat labs in a.m. MMODL / IJN: [id number] /
--- NOTE | 2021-07-19 20:02 | P.PN ---
Subjective Progress Note Date: 07/19/21 Patient is a 70-year-old male with a past medical history of tobacco abuse, schizophrenia, and paranoia who initially presented to [facility] with complaints of lightheadedness, weakness, and multiple falls. On urinalysis he was found to have acute kidney injury and was subsequently transferred here. He was diagnosed with severe hypercalcemia secondary to [id number] supplementation, elevated troponin, and CHAYA. Nephrology was consulted recommended normal saline as well as Zometa and checking a vitamin D level. They ordered a serum and urine immunoelectrophoresis. Due to his chronic d iarrhea he was tested for C. diff which came back positive and he was started on vancomycin. Cardiology was consulted secondary to his elevated troponins. The son intermittent second-degree heart block which resolved with treatment of his hyperkalemia. They recommended outpatient 30 day event monitor. Patient seen and examined at bedside. No chest pain, no shortness of breath, no nausea, diarrhea is better. General: non toxic, no distress, appears at stated age Derm: warm, dry Head: atraumatic, normocephalic, symmetric Eyes: EOMI, no lid lag, anicteric sclera Mouth: no lip lesion, mucus membranes moist Cardiovascular: S1S2 reg, no murmur, positive posterior tibial pulse bilateral, Lungs: CTA bilateral, no rhonchi, no rales , no accessory muscle use Abdominal: soft, nontender to palpation, no guarding, no appreciable organomegaly Ext: no gross muscle atrophy, no edema, no contractures Neuro: CN II-XI grossly intact, no focal neuro deficits Psych: Alert, oriented, appropriate affect Hypercalcemia Acute kidney injury Hypovolemic hyponatremia - IVF - Nephrology recs - High Vitamine D levels - outpatient eval for enlarged prostate - await serum and urin immunofixation - outpatient follow-up Enlarged prostate on ultrasound - outpatient urology follow-up, elevated PSA Anemia, Thrombocytopenia - B12 normal - follow CBC C. diff colitis - continue with vancomycin - IVF fluids Hypokalemia, hypomagnesemia - replace and recheck in AM Transaminitis - Recehck likely due to hypoperfusion Elevated troponin Second-degree heart block - cardio recs appreciated: outpatient event monitor - ech.o with EF 60-65% probable schizophrenia - outpatient follow-up DVT: heparin SC Objective - Vital Signs Vital signs: Vital Signs Temp 98.3 F 07/19/21 15:29 Pulse 63 07/19/21 15:29 Resp 17 07/19/21 15:29 BP 97/54 07/19/21 15:29 Pulse Ox 98 07/19/21 15:29 Intake & Output 07/19/21 07/19/21 07/20/21 06:59 18:59 06:59 Intake Total 960 Balance 960 Weight 64 kg Intake: Oral 960 Other: Voiding Method Toilet Toilet Urinal Urinal # Voids 2 2 - Labs CBC & Chem 7: 07/19/21 06:32 07/19/21 06:33 Labs: Abnormal Lab Results - Last 24 Hours (Table) 07/17/21 07/19/21 07/19/21 Range/Units 02:41 06:32 06:33 RBC 2.73 L (4.30-5.90) m/uL Hgb 9.9 L D (13.0-17.5) gm/dL Hct 30.5 L (39.0-53.0) % MCV 111.5 H (80.0-100.0) fL MCH 36.2 H (25.0-35.0) pg Plt Count 122 L (150-450) k/uL Lymphocytes # 0.6 L (1.0-4.8) k/uL Macrocytosis Marked A Sodium 133 L (137-145) mmol/L Potassium 3.0 L (3.5-5.1) mmol/L Creatinine 1.38 H (0.66-1.25) mg/dL Magnesium 1.2 L (1.6-2.3) mg/dL Total PSA 4.2 H (<=4.0) ng/mL
[2021-07-19 21:20] LABS: Reticulocyte % 0.6 % (0.5-2.0)
[2021-07-20] MEDS: ONDANSETRON 4 MG/2 ML VIAL IVP PRN (04:37)
[2021-07-20] MEDS: 0.9% NACL WITH KCL 20 MEQ/L 1,000 ML IV SCH ×3 (05:03→23:19)
[2021-07-20 08:07] LABS: % Iron Saturation 12.61 (15.00-50.00)
[2021-07-20] MEDS: CHOLESTYRAMINE (WITH SUGAR) 4 GM PACKET PO SCH ×3 (08:54→18:02)
[2021-07-20] MEDS: HEPARIN SODIUM,PORCINE/PF 5,000 UNIT/0.5 ML SYRINGE SQ SCH ×2 (08:54→16:37)
[2021-07-20] MEDS: SODIUM CHLORIDE TAB 1 GM TAB PO SCH ×2 (08:55→20:16)
[2021-07-20] MEDS: VANCOMYCIN 125 MG CAPSULE PO SCH ×4 (08:55→20:17)
[2021-07-20 09:12] LABS: Basophils % (A) 0 %; Eosinophils # (A) 0.2 k/uL (0-0.7); Eosinophils % (A) 2 %; HCT 27.9 % (39.0-53.0); HGB 9.7 gm/dL (13.0-17.5); Lymphocytes # (A) 0.6 k/uL (1.0-4.8); Lymphocytes % (A) 10 %; MCH 38.3 pg (25.0-35.0); MCHC 34.9 g/dL (31.0-37.0); MCV 109.8 fL (80.0-100.0); Macrocytosis Marked; Mean Platelet Volume 9.6; Monocytes # (A) 0.1 k/uL (0-1.0); Monocytes % (A) 2 %; Neutrophils # (A) 5.5 k/uL (1.3-7.7); Neutrophils % (A) 85 %; Platelet Count 149 k/uL (150-450); RBC 2.54 m/uL (4.30-5.90); RDW 14.4 % (11.5-15.5); WBC 6.5 k/uL (3.8-10.6)
[2021-07-20 09:26] LABS: Albumin 2.3 g/dL (3.5-5.0); Magnesium 1.2 mg/dL (1.6-2.3); Potassium 3.1 mmol/L (3.5-5.1); Total Bilirubin 0.3 mg/dL (0.2-1.3); Total Protein 5.1 g/dL (6.3-8.2)
[2021-07-20] MEDS ORDERED: MAGNESIUM OXIDE 400 MG TAB PO STA (10:09)
[2021-07-20 11:57] LABS: Toxic Granulation Present
[2021-07-20] MEDS ORDERED: SODIUM FERRIC GLUCONAT-SUCROSE 125 MG in SODIUM CHLORIDE 0.9% 100 ML IVPB ONE (12:00)
[2021-07-20] MEDS: POTASSIUM CHLORIDE ER 20 MEQ TAB.ER PO SCH ×2 (12:11→13:25)
--- NOTE | 2021-07-20 12:27 | PN ---
PROGRESS NOTE Patient is seen for followup for acute kidney injury secondary to hypercalcemia and volume depletion, currently improved with creatinine down to 1.28. Patient remains hypokalemic and hypomagnesemic, status post supplementation over the last few days. He states that his diarrhea has improved. Patient is maintained on oral vancomycin for C difficile colitis. On examination today, blood pressure was 105/60, heart rate 86 per minute. He is afebrile. EXAMINATION OF THE HEART: S1 and S2. EXAMINATION OF LUNGS: Bilateral breath sounds are heard. Abdomen is soft, non-tender. Examination of lower extremities shows no evidence of edema. EQUAL OPPORTUNITY DIRECTOR exam shows patient moving all 4 extremities. Labs show sodium 133, potassium 3.1, BUN 15, serum creatinine 1.28, hemoglobin 9.7 g/dL. ASSESSMENT: 1. Acute kidney injury secondary to hypercalcemia and volume depletion, currently improved with IV hydration. 2. Hypokalemia and hypomagnesemia associated with gastrointestinal fluid loss and decreased oral intake, being replaced. Will replace aggressively. 3. Hyponatremia, mostly hypovolemic, maintained on sodium chloride tabs and normal saline, currently improved. 4. Clostridium difficile colitis, maintained on oral vancomycin. 5. Hypercalcemia associated with vitamin D intoxication, currently improved. Calcium is down to 10.0 from 15. 6. Iron deficiency; hemoglobin maintained at 9.9 g/dL. PLAN: Replace magnesium and potassium. Patient states that his diarrhea has improved and he would like to take his magnesium p.o., which we can try. I will discontinue the sodium chloride tabs and we can give him one dose of IV iron as well. MMODL / IJN: [id number] /
--- NOTE | 2021-07-20 13:10 | P.CONS ---
History of Present Illness - Reason for Consult Consult date: 07/20/21 Macrocytic Anemia Requesting physician: Debra Meadows - Chief Complaint Falls - History of Present Illness Mr. Yañez is a 70 year old male patient who has not doctored in many many years >20. He follows his own routine as far as "taking care of himself". He has a known history of schizoprenia and paranoia as well. He take multiple supplements at home which are likely contributing to his toxic levels of Vitamin D, Elevated Folate, Elevated B12, and potentially hypercalcemia (dehydration another contributing factor). He has tested positive for C -diff. Was started on treatment for this by primary team. On admission he presented with macrocytosis, mild thrombocytopenia. Because of this we have been asked to further evaluate. Review of Systems All systems: negative Constitutional: Reports as per HPI Past Medical History Past Medical History: Diabetes Mellitus Additional Past Medical History / Comment(s): Diet controlled DM History of Any Multi-Drug Resistant Organisms: None Reported Past Surgical History: No Surgical Hx Reported Past Psychological History: No Psychological Hx Reported Smoking Status: Current every day smoker Past Alcohol Use History: None Reported Past Drug Use History: None Reported - Past Family History Father Family Medical History: AICD/Pacemaker, Congestive Heart Failure (CHF), COPD, Coronary Artery Disease (CAD), Hyperlipidemia, Hypertension, Myocardial Infarction (MT) Additional Family Medical History / Comment(s): emphysema, Mother Family Medical History: AICD/Pacemaker, Congestive Heart Failure (CHF), Coronary Artery Disease (CAD), Myocardial Infarction (MT) Medications and Allergies Home Medications Medication Instructions Recorded Confirmed Type Vancomycin 125 mg PO QID #44 capsule 07/19/21 Rx Allergies Allergy/AdvReac Type Severity Reaction Status Date / Time bacitracin Allergy Unknown Verified 07/15/21 21:00 [From Neosporin ([id number])] cortisone Allergy Unknown Verified 07/15/21 21:00 neomycin Allergy Unknown Verified 07/15/21 21:00 [From Neosporin ([id number])] polymyxin B Allergy Unknown Verified 07/15/21 21:00 [From Neosporin ([id number])] Physical Exam Vitals: Vital Signs Temp Pulse Resp BP Pulse Ox 07/20/21 08:00 98.5 F 86 17 105/60 95 07/20/21 04:00 98.6 F 78 16 113/59 96 07/20/21 02:00 80 18 07/19/21 23:03 98.5 F 80 18 120/72 97 07/19/21 20:00 98.3 F 75 18 115/62 97 07/19/21 15:29 98.3 F 63 17 97/54 98 07/19/21 14:00 78 18 07/19/21 12:00 98.1 F 78 18 105/51 96 Intake and Output 07/19/21 07/20/21 07/20/21 22:59 06:59 14:59 Intake Total 777 420 Balance 777 420 Intake: Oral 777 420 Other: Voiding Method Toilet Toilet Toilet Urinal Urinal Urinal # Voids 2 Weight 60.7 kg - Constitutional General appearance: cooperative, no acute distress - EENT Eyes: edentulous, EOMI, PERRLA ENT: hard of hearing, NA/AT - Neck Neck: normal ROM - Respiratory Respiratory: bilateral: CTA - Cardiovascular Rhythm: regular Heart sounds: normal: S1, S2 - Gastrointestinal General gastrointestinal: normal bowel sounds, soft - Integumentary Integumentary: pale - Musculoskeletal Musculoskeletal: generalized weakness, strength equal bilaterally - Psychiatric inappropriate answering, histrionic type answers and "story telling" Psychiatric: A&O x's 3, appropriate affect, intact judgment & insight Results CBC & Chem 7: 07/20/21 08:41 07/20/21 08:41 Labs: Abnormal Lab Results - Last 24 Hours (Table) 07/19/21 07/20/21 07/20/21 Range/Units 06:30 08:41 08:41 RBC 2.54 L (4.30-5.90) m/uL Hgb 9.7 L (13.0-17.5) gm/dL Hct 27.9 L (39.0-53.0) % MCV 109.8 H (80.0-100.0) fL MCH 38.3 H (25.0-35.0) pg Plt Count 149 L (150-450) k/uL Macrocytosis Marked A Sodium 133 L (137-145) mmol/L Potassium 3.1 L (3.5-5.1) mmol/L Creatinine 1.28 H (0.66-1.25) mg/dL Glucose 135 H (74-99) mg/dL Magnesium 1.2 L (1.6-2.3) mg/dL Iron 24 L (65-175) ug/dL TIBC 190 L (228-460) ug/dL % Saturation 12.61 L (15.00-50.00) Transferrin 136.0 L (204.0-354.0) mg/dL Ferritin 869.0 H (22.0-322.0) ng/mL Total Protein 5.1 L (6.3-8.2) g/dL Albumin 2.3 L (3.5-5.0) g/dL US - abdomen: report reviewed Assessment and Plan (1) Clostridium difficile colitis Current Visit: Yes Status: Acute Code(s): A04.72 - ENTEROCOLITIS D/T CLOSTRIDIUM DIFFICILE, NOT SPCF RECUR SNOMED Code(s): 757698107 (2) Macrocytosis Current Visit: Yes Status: Acute Code(s): D75.89 - OTHER SPECIFIED DISEASES OF BLOOD AND BLOOD-FORMING ORGANS SNOMED Code(s): 702800815 (3) Macrocytic anemia Current Visit: Yes Status: Acute Code(s): D53.9 - NUTRITIONAL ANEMIA, UNSPECIFIED SNOMED Code(s): 26602034 (4) Vitamin D toxicity Current Visit: Yes Status: Acute Code(s): T45.2X1A - POISONING BY VITAMINS, ACCIDENTAL (UNINTENTIONAL), INIT SNOMED Code(s): 04018938 Plan: Assessment and Recommendations: Macrocytosis - Work-up in progress. - Vitamin B12, Folate Levels very high Macrocytic Anemia - Likely contributed to hydration for treatment of hypercalcemia Mild Thrombocytopenia - Improving and likely reactive to over supplementation, acute inflammatory process, and potential underlying liver disease. Vitamin D Toxicity - Marked elevation 1,25-dihydoxyvitamin D level usually as a result of misuse and excessive self dosing of OTC vitamatosis which may also contribute to inadequate detoxofying within liver, resulting in elevated liver enzymes (which are improving) Hypercalcemia - Likely related to above, patient self dosing of OTC Supplements - Dehydration from Diarrhea and C-Diff a likely compoenent to increased calcium as well - In the picture of Hypercalcemia, acute renal insufficiency and macrocytic anemia will need to further evaluate for other underlying etiologies: Protein el ectrophoresis, Free kappa and Lambda Light Chains, Immunoglobulins, Immunofixation has also been ordered and is pending. C-Diff Colitis/Diarrhea - Treatment per primary team - PO Vanco Hypomagnesium/Hypokalemia - Diarrhea and Colitis - Worsened by imbalance of inapprpriate PO supplementation Acute Kidney Injury: - As above - Nephrology is Following Attempts to re-educate patient on appropriate use, monitoring, and adhering to physician follow-ups, however patient is very guarded during these conversations as he does not "trust" and "believe" he is hurting his body, despite education on over-dosing of supplementation and resulting in overall imbalance in his body. Replacement of electrolytes per primary team Await final hematology work-up to result, continued education attempts will be made.
[2021-07-20 13:32] LABS: Partial Thromboplastin Time 25.3 sec (22.0-30.0); Prothrombin Time 10.3 sec (9.0-12.0)
[2021-07-20] MEDS ORDERED: IBUPROFEN 400 MG TAB PO PRN (14:32)
--- NOTE | 2021-07-20 20:37 | P.PN ---
Subjective Progress Note Date: 07/20/21 (delayed charting seen at 0900) Patient is a 70-year-old male with a past medical history of tobacco abuse, schizophrenia, and paranoia who initially presented to [facility] with complaints of lightheadedness, weakness, and multiple falls. On urinalysis he was found to have acute kidney injury and was subsequently transferred here. He was diagnosed with severe hypercalcemia secondary to [id number] supplementation, elevated troponin, and CHAYA. Nephrology was consulted recommended normal saline as well as Zometa and checking a vitamin D level. They ordered a serum and urine immunoelectrophoresis. Due to his chronic diarrhea he was tested for C. diff which came back positive and he was started on vancomycin. Cardiology was consulted secondary to his elevated troponins. They noted intermittent second-degree heart block which resolved with treatment of his hyperkalemia. They recommended outpatient 30 day event monitor. Patient was found to have high levels of vitamin D toxicity which is the cause of his hypercalcemia. His diarrhea was improving daily. He had acute hypo-kalemia and hypomagnesemia which were actively replaced. Hematology oncology was consulted secondary to his continued macrocytosis with high levels of vitamin B12 and folic acid. Patient seen and examined at bedside. No chest pain, no shortness of breath, no nausea, diarrhea is better. Complains of having a systemic antifungal disease secondary to getting tinea on his head when getting stung by yellow jackets. He appears fixated on this. General: non toxic, no distress, appears at stated age Derm: warm, dry Head: atraumatic, normocephalic, symmetric Eyes: EOMI, no lid lag, anicteric sclera Mouth: no lip lesion, mucus membranes moist Cardiovascular: S1S2 reg, no murmur, positive posterior tibial pulse bilateral, Lungs: CTA bilateral, no rhonchi, no rales , no accessory muscle use Abdominal: soft, nontender to palpation, no guarding, no appreciable organomegaly Ext: no gross muscle atrophy, no edema, no contractures Neuro: CN II-XI grossly intact, no focal neuro deficits Psych: Alert, oriented, appropriate affect Hypercalcemia Acute kidney injury Hypovolemic hyponatremia Vitamin D toxicity - IVF - Nephrology recs - outpatient eval for enlarged prostate - await serum and urine electrophoresis - outpatient follow-up - CXR negative for signs of sarcodiosis and granulomatous disease - D/W nephro not likely malignancy related as this would be 1 25 OH D, no signs/sx of sarcoid/granulmatous disease and suspect supratherapeutic uses of Vit D. - PTH low Enlarged prostate on ultrasound - outpatient urology follow-up, elevated PSA Anemia, Thrombocytopenia - B12 and RBC folate elevated - Hematology recs - follow CBC C. diff colitis - continue with vancomycin - monitor for worsening diarrhe with oral magnesium - questran - IVF fluids Hypokalemia, hypomagnesemia - replace and recheck in AM Transaminitis - Recheck likely due to hypoperfusion Elevated troponin Second-degree heart block - cardio recs appreciated: outpatient event monitor - ech.o with EF 60-65% probable schizophrenia - outpatient follow-up DVT: heparin SC Anticipate home in AM if diarrhea is controlled. Objective - Vital Signs Vital signs: Vital Signs Temp 98.0 F 07/20/21 19:40 Pulse 75 07/20/21 19:40 Resp 16 07/20/21 19:40 BP 108/65 07/20/21 19:40 Pulse Ox 94 L 07/20/21 19:40 Intake & Output 07/20/21 07/20/21 07/21/21 06:59 18:59 06:59 Intake Total 237 600 Output Total 2810 Balance 237 -2210 Weight 60.7 kg Intake: Oral 237 600 Output: Stool 2810 Other: Voiding Method Toilet Toilet Urinal Urinal # Voids 2 - Labs CBC & Chem 7: 07/20/21 08:41 07/20/21 08:41 Labs: Abnormal Lab Results - Last 24 Hours (Table) 07/19/21 07/20/21 07/20/21 Range/Units 06:30 08:41 08:41 RBC 2.54 L (4.30-5.90) m/uL Hgb 9.7 L (13.0-17.5) gm/dL Hct 27.9 L (39.0-53.0) % MCV 109.8 H (80.0-100.0) fL MCH 38.3 H (25.0-35.0) pg Plt Count 149 L (150-450) k/uL Lymphocytes # 0.6 L (1.0-4.8) k/uL Macrocytosis Marked A ESR (0-15) mm/hr Sodium 133 L (137-145) mmol/L Potassium 3.1 L (3.5-5.1) mmol/L Creatinine 1.28 H (0.66-1.25) mg/dL Glucose 135 H (74-99) mg/dL Magnesium 1.2 L (1.6-2.3) mg/dL Iron 24 L (65-175) ug/dL TIBC 190 L (228-460) ug/dL % Saturation 12.61 L (15.00-50.00) Transferrin 136.0 L (204.0-354.0) mg/dL Ferritin 869.0 H (22.0-322.0) ng/mL Total Protein 5.1 L (6.3-8.2) g/dL Albumin 2.3 L (3.5-5.0) g/dL Rheumatoid Factor (0-15) IU/mL 07/20/21 07/20/21 Range/Units 12:18 12:18 RBC (4.30-5.90) m/uL Hgb (13.0-17.5) gm/dL Hct (39.0-53.0) % MCV (80.0-100.0) fL MCH (25.0-35.0) pg Plt Count (150-450) k/uL Lymphocytes # (1.0-4.8) k/uL Macrocytosis ESR 58 H (0-15) mm/hr Sodium (137-145) mmol/L Potassium (3.5-5.1) mmol/L Creatinine (0.66-1.25) mg/dL Glucose (74-99) mg/dL Magnesium (1.6-2.3) mg/dL Iron (65-175) ug/dL TIBC (228-460) ug/dL % Saturation (15.00-50.00) Transferrin (204.0-354.0) mg/dL Ferritin (22.0-322.0) ng/mL Total Protein (6.3-8.2) g/dL Albumin (3.5-5.0) g/dL Rheumatoid Factor 21 H (0-15) IU/mL
[2021-07-20] MEDS ORDERED: MAGNESIUM OXIDE 400 MG TAB PO SCH (21:00)
[2021-07-20 21:41] LABS: Protein, Total 5.1 g/dL (6.2-8.2)
[2021-07-21] MEDS: HEPARIN SODIUM,PORCINE/PF 5,000 UNIT/0.5 ML SYRINGE SQ SCH ×3 (00:23→19:40)
[2021-07-21 08:05] LABS: HCT 28.4 % (39.0-53.0); HGB 9.6 gm/dL (13.0-17.5); MCH 37.8 pg (25.0-35.0); MCHC 33.7 g/dL (31.0-37.0); Macrocytosis Marked; Mean Platelet Volume 10.3; Platelet Count 146 k/uL (150-450); RBC 2.53 m/uL (4.30-5.90); RDW 13.6 % (11.5-15.5); WBC 6.7 k/uL (3.8-10.6)
[2021-07-21 08:19] LABS: Potassium 3.3 mmol/L (3.5-5.1)
[2021-07-21] MEDS ORDERED: ASPIRIN 325 MG TAB PO STA (09:50)
[2021-07-21] MEDS ORDERED: Potassium Replacement Protocol 1 EACH MISC MISCELLANE PRN (11:14)
[2021-07-21] MEDS: VANCOMYCIN 125 MG CAPSULE PO SCH ×3 (11:16→16:22)
[2021-07-21] MEDS: MAGNESIUM SULFATE-D5W PMX 1 GM in DEXTROSE/WATER 1 100ML.BAG IVPB SCH ×4 (11:16→16:21)
[2021-07-21] MEDS: CHOLESTYRAMINE (WITH SUGAR) 4 GM PACKET PO SCH ×3 (11:16→19:40)
[2021-07-21] MEDS: SODIUM CHLORIDE TAB 1 GM TAB PO SCH (11:16)
--- NOTE | 2021-07-21 12:40 | PN ---
PROGRESS NOTE HISTORY: The patient is seen for followup for acute kidney injury, hypokalemia, hypomagnesemia. He currently is being treated for C difficile colitis. Diarrhea seems to have improved. Magnesium remains low potassium is slightly better. Patient is persistent about needing antifungal treatment. He has been advised that he has no indication to require any antifungal treatment currently. PHYSICAL EXAMINATION: On examination today, blood pressure is 102/56, heart rate 82 per minute. He is afebrile. Examination shows mild edema in the lower extremities. BALANCE TRUER exam grossly intact. Patient moving all 4 extremities. LAB: Sodium 131, potassium 3.3, BUN 17, creatinine 1.26. ASSESSMENT: 1. Acute kidney injury, prerenal, improved with IV hydration. 2. Hypokalemia associated with diarrhea, decreased oral intake, improved post replacement. Continue supplementation post discharge. 3. Hypomagnesemia associated with diarrhea. Agree with IV and oral supplementation. Patient can be discharged on oral magnesium and potassium supplementation. He is advised to avoid use of the vitamin D due to hypercalcemia. 4. Hypercalcemia associated with vitamin D intoxication. 5. Clostridium difficile colitis, maintained on oral vancomycin, currently improved. 6. Hyponatremia which was hypovolemic, improved. Currently patient has lower extremity edema. I will maintain off sodium chloride tabs for now. MMODL / IJN: [id number] /
[2021-07-21] MEDS: POTASSIUM CHLORIDE ER 20 MEQ TAB.ER PO SCH ×2 (12:45→13:57)
[2021-07-21 16:14] VITALS: BP 107/63; PULSE 75; RESP 16; TEMP 98.6
--- NOTE | 2021-07-21 18:28 | P.PN ---
Subjective Progress Note Date: 07/21/21 Principal diagnosis: Macrocytosis Full hematology work-up still pending. Objective - Vital Signs Vital signs: Vital Signs Temp 99.1 F 07/21/21 12:00 Pulse 80 07/21/21 12:00 Resp 18 07/21/21 12:00 BP 108/60 07/21/21 12:00 Pulse Ox 94 L 07/21/21 12:00 Intake & Output 07/20/21 07/21/21 07/21/21 18:59 06:59 18:59 Intake Total 600 965 480 Output Total 2810 Balance -2210 965 480 Weight 62 kg Intake: Oral 600 965 480 Output: Stool 2810 Other: Voiding Method Toilet Toilet Urinal Urinal # Voids 2 1 2 # Bowel Movements 1 - Exam - Constitutional General appearance: cooperative, no acute distress - EENT Eyes: edentulous, EOMI, PERRLA ENT: hard of hearing, NA/AT - Neck Neck: normal ROM - Respiratory Respiratory: bilateral: CTA - Cardiovascular Rhythm: regular Heart sounds: normal: S1, S2 - Gastrointestinal General gastrointestinal: normal bowel sounds, soft - Integumentary Integumentary: pale - Musculoskeletal Musculoskeletal: generalized weakness, strength equal bilaterally - Psychiatric inappropriate answering, Psychiatric: A&O x's 3, appropriate affect, intact judgment & insight - Labs CBC & Chem 7: 07/21/21 07:51 07/21/21 07:51 Labs: Abnormal Lab Results - Last 24 Hours (Table) 07/20/21 07/20/21 07/20/21 Range/Units 12:18 12:18 12:18 RBC (4.30-5.90) m/uL Hgb (13.0-17.5) gm/dL Hct (39.0-53.0) % MCV (80.0-100.0) fL MCH (25.0-35.0) pg Plt Count (150-450) k/uL Macrocytosis ESR 58 H (0-15) mm/hr Sodium (137-145) mmol/L Potassium (3.5-5.1) mmol/L Creatinine (0.66-1.25) mg/dL Glucose (74-99) mg/dL Magnesium (1.6-2.3) mg/dL Total Protein (PEP) 5.1 L (6.2-8.2) g/dL Rheumatoid Factor 21 H (0-15) IU/mL 07/21/21 07/21/21 Range/Units 07:51 07:51 RBC 2.53 L (4.30-5.90) m/uL Hgb 9.6 L (13.0-17.5) gm/dL Hct 28.4 L (39.0-53.0) % MCV 112.0 H (80.0-100.0) fL MCH 37.8 H (25.0-35.0) pg Plt Count 146 L (150-450) k/uL Macrocytosis Marked A ESR (0-15) mm/hr Sodium 131 L (137-145) mmol/L Potassium 3.3 L (3.5-5.1) mmol/L Creatinine 1.26 H (0.66-1.25) mg/dL Glucose 132 H (74-99) mg/dL Magnesium 1.0 L (1.6-2.3) mg/dL Total Protein (PEP) (6.2-8.2) g/dL Rheumatoid Factor (0-15) IU/mL Assessment and Plan (1) Clostridium difficile colitis Current Visit: Yes Status: Acute Code(s): A04.72 - ENTEROCOLITIS D/T CLOSTRIDIUM DIFFICILE, NOT SPCF RECUR SNOMED Code(s): 409807812 (2) Macrocytosis Current Visit: Yes Status: Acute Code(s): D75.89 - OTHER SPECIFIED DISEASES OF BLOOD AND BLOOD-FORMING ORGANS SNOMED Code(s): 693962967 (3) Macrocytic anemia Current Visit: Yes Status: Acute Code(s): D53.9 - NUTRITIONAL ANEMIA, UNSPECIFIED SNOMED Code(s): 52692868 (4) Vitamin D toxicity Current Visit: Yes Status: Acute Code(s): T45.2X1A - POISONING BY VITAMINS, ACCIDENTAL (UNINTENTIONAL), INIT SNOMED Code(s): 07060163 Plan: Assessment and Recommendations: Macrocytosis - Work-up in progress. - Vitamin B12, Folate Levels very high - MCV - 119 today Macrocytic Anemia - Likely contributed to hydration for treatment of hypercalcemia - Hemoglobin 9.6 today Mild Thrombocytopenia - Improving and likely reactive to over supplementation, acute inflammatory process, and potential underlying liver disease. Vitamin D Toxicity - Marked elevation 1,25-dihydoxyvitamin D level usually as a result of misuse and excessive self dosing of OTC vitamatosis which may also contribute to inadequate detoxofying within liver, resulting in elevated liver enzymes (which are improving) Hypercalcemia - Likely related to above, patient self dosing of OTC Supplements - Dehydration from Diarrhea and C-Diff a likely compoenent to increased calcium as well - In the picture of Hypercalcemia, acute renal insufficiency and macrocytic anemia will need to further evaluate for other underlying etiologies: Protein electrophoresis, Free kappa and Lambda Light Chains, Immunoglobulins, Immunofixation has also been ordered and is pending. C-Diff Colitis/Diarrhea - Treatment per primary team - PO Vanco Hypomagnesium/Hypokalemia - Diarrhea and Colitis - Worsened by imbalance of inappropriate PO supplementation Acute Kidney Injury: - As above - Nephrology is Following Attempts to re-educate patient on appropriate use, monitoring, and adhering to physician follow-ups, however patient is very guarded during these conversations as he does not "trust" and "believe" he is hurting his body, despite education on over-dosing of supplementation and resulting in overall imbalance in his body. Replacement of electrolytes per primary team Hematological Work-up: RADHA = Negative Rheumatoid Factor = 26 (Increased) Haptoglobin = 46, LDH 544 PSA 4.6 (mild increase) Ferritin = increased >800 No Parental Iron supplementation needed DISPO PLan: - If patient discharged prior to resulted labs, as status appears stable, this can be followed up as outpatient if patient willing to be seen in office to further review. - Will have our office call him and set up outpatient visit in 2-3 weeks. Physician Attest: I have completed the full history and physical and agree with above dictation, dictated as a ascribe.
[2021-07-21] MEDS ORDERED: MAGNESIUM OXIDE 400 MG TAB PO SCH ×2 (21:00)
--- NOTE | 2021-07-21 21:59 | P.DS ---
Providers Date of admission: 07/15/21 20:29 Expected date of discharge: 07/21/21 Attending physician: Rosangela Haile MD Consults: 07/15/21 20:11 Consult Physician Routine Consulting Provider: Irene Erazo Consult Reason/Comments: Acute kidney injury, hyponatremia, hypercalcemia Do you want consulting provider notified?: Yes 07/19/21 20:07 Consult Physician Routine Consulting Provider: Dg Alvarenga Consult Reason/Comments: hypercalcemia, anemia, thrombocytopenia Do you want consulting provider notified?: Yes Primary care physician: Stated None Hospital Course: Discharge Diagnosis: Hypercalcemia Acute kidney injury Hypovolemic hyponatremia Vitamin D toxicity Enlarged prostate on ultrasound Anemia, Thrombocytopenia C. diff colitis Hypokalemia, hypomagnesemia Transaminitis Elevated troponin, no acute coronary syndrome Second-degree heart block probable schizophrenia Hospital Course: Patient is a 70-year-old male with a past medical history of tobacco abuse, schizophrenia, and paranoia who initially presented to [facility] with complaints of lightheadedness, weakness, and multiple falls. On urinalysis he was found to have acute kidney injury and was subsequently transferred here. He was diagnosed with severe hypercalcemia secondary to [id number] supplementation, elevated troponin, and CHAYA. Nephrology was consulted recommended normal saline as well as Zometa and checking a vitamin D level. They ordered a serum and urine immunoelectrophoresis. Due to his chronic diarrhea he was tested for C. diff which came back positive and he was started on vancomycin. Cardiology was consulted secondary to his elevated troponins. They noted intermittent second-degree heart block which resolved with treatment of his hyperkalemia. They recommended outpatient 30 day event monitor. Patient was found to have high levels of vitamin D toxicity which is the cause of his hypercalcemia. His diarrhea was improving daily. He had acute hypokalemia and hypomagnesemia which were actively replaced. Hematology oncology was consulted secondary to his continued macrocytosis with high levels of vitamin B12 and folic acid. His diarrhea improved and he was determined stable for discharge home. His brother had been contacted by case management. He will need continued magnesium and potassium supplementation on discharge. Follow-up: Complete 14 days of VAnco oral, [facility], Dr. Josue bella secondary to prostate enlargement, Dr. Doshi for event monitor, Dr. Erazo for prolonged metabolic derangements, and Dr. Alvarenga for anemia and thrombocytopenia. Patient seen and examined at bedside. He continues to have difficulty focusing on our conversation, he is fixated on having a systemic IV antifungal therapy. He states he wants to go home. It is unclear as to whether his diarrhea is better or worse. Vital signs reviewed and stable. General: non toxic, no distress, appears at stated age Derm: warm, dry Head: atraumatic, normocephalic, symmetric Eyes: EOMI, no lid lag, anicteric sclera Mouth: no lip lesion, mucus membranes moist Cardiovascular: S1S2 reg, no murmur, positive posterior tibial pulse bilateral, Lungs: CTA bilateral, no rhonchi, no rales , no accessory muscle use Abdominal: soft, nontender to palpation, no guarding, no appreciable organom egaly Ext: no gross muscle atrophy, no edema, no contractures Neuro: CN II-XI grossly intact, no focal neuro deficits Psych: Alert, oriented, appropriate affect A total of 35 minutes of time were spent preparing this complex discharge summary . Patient Condition at Discharge: Stable Plan - Discharge Summary Discharge Rx Participant: Yes New Discharge Prescriptions: New Potassium Chloride ER [K-Dur 20] 20 meq PO DAILY #30 tab Magnesium Oxide [Mag-Ox] 800 mg PO BID #60 tab Cholestyramine (with Sugar) [Questran Packet] 4 gm PO TID BETWEEN MEALS #90 packet Sodium Chloride Tab 1 gm PO BID #60 tab Vancomycin 125 mg PO QID #44 capsule Discharge Medication List Vancomycin 125 mg PO QID #44 capsule 07/19/21 [Rx] Cholestyramine (with Sugar) [Questran Packet] 4 gm PO TID BETWEEN MEALS #90 packet 07/21/21 [Rx] Magnesium Oxide [Mag-Ox] 800 mg PO BID #60 tab 07/21/21 [Rx] Potassium Chloride ER [K-Dur 20] 20 meq PO DAILY #30 tab 07/21/21 [Rx] Sodium Chloride Tab 1 gm PO BID #60 tab 07/21/21 [Rx] Follow up Appointment(s)/Referral(s): Dg Alvarenga MD [STAFF PHYSICIAN] - 4 Weeks Irene Erazo MD [STAFF PHYSICIAN] - 4 Weeks Adolfo Doshi DO [STAFF PHYSICIAN] - 1 Week Fabrizio Valero MD [STAFF PHYSICIAN[facility] Patient Instructions/Handouts: C Diff (Clostridium Difficile) Infection (DC) Activity/Diet/Wound Care/Special Instructions: Activity: as tolerated Diet: regular, well cooked foods only Special Instructions: Vancomycin $385.42 @[employer] location using Good Rx discount card Take only the prescribed supplements and a daily multivitamin, do not take any vitamin D supplementation Has enlarged prostate- Dr. Valero High Calcium- Dr. Erazo Discharge Disposition: HOME SELF-CARE
[2021-07-24 08:35] LABS: Albumin 2.91 g/dL (3.80-4.90); Gamma Globulin 1.33 g/dL (0.70-1.50)
[2021-07-24 08:36] LABS: Free Kappa Lt Chain Qnt, Serum 6.18 mg/dL (0.33-1.94)
[2021-07-24 15:40] LABS: Albumin 2.46 g/dL (3.80-4.90); Gamma Globulin 1.12 g/dL (0.70-1.50)
== END 2021-07-21 19:54 | disposition home or self-care (01) | DRG 683 ==
LOC: EC 19:23 → 5NMEDONC 20:29 → 3SCARD 23:48
PROVIDERS: ADMIT Internal Medicine; ATTEND Internal Medicine
DX: N17.9 Acute kidney failure, unspecified (principal); E87.1 Hypo-osmolality and hyponatremia; A04.72 Enterocolitis due to Clostridium difficile, not specified as recurrent; E87.6 Hypokalemia; E83.52 Hypercalcemia; E83.42 Hypomagnesemia; E67.3 Hypervitaminosis D; E86.1 Hypovolemia; F17.200 Nicotine dependence, unspecified, uncomplicated; F20.9 Schizophrenia, unspecified; E61.1 Iron deficiency; E87.5 Hyperkalemia; I44.1 Atrioventricular block, second degree; I95.1 Orthostatic hypotension; N40.0 Benign prostatic hyperplasia without lower urinary tract symptoms; E11.9 Type 2 diabetes mellitus without complications; B35.9 Dermatophytosis, unspecified; D53.9 Nutritional anemia, unspecified; D69.6 Thrombocytopenia, unspecified; D75.89 Other specified diseases of blood and blood-forming organs; Z82.5 Family history of asthma and other chronic lower respiratory diseases; Z82.49 Family history of ischemic heart disease and other diseases of the circulatory system; Z78.9 Other specified health status; T45.2X5A Adverse effect of vitamins, initial encounter
CPT/HCPCS: 36415; 71046; 74018; 76770; 80048; 80053; 81003; 82330; 82607; 82652; 82728; 82747; 82784; 83010; 83540; 83550; 83615; 83735; 83883; 83921; 83970; 84100; 84153; 84154; 84165; 84443; 84484; 84550; 85025; 85027; 85045; 85610; 85652; 85730; 86038; 86334; 86335; 86431; 87324; 93005; 93306; 99285